=== PATIENT | female | born 1965 | race Asian ===

== ENCOUNTER 2018-02-15 14:03 | Emergency (ER) | payer BC, OTHER ==
--- NOTE | 2018-02-15 14:23 | PDOC ---
History of Present Illness - General History Source: Patient Exam Limitations: No Limitations - History of Present Illness Initial Comments: 02/15/18 15:04 The patient is a 53 year old female with a significant PMH of hypertension and hypercholesterolemia who presents to the emergency department with acute upper right quadrant pain abdominal pain earlier today. The patient reports that she was at home in bed when her upper right quadrant abdominal pain woke her up from her sleep at 3AM.She reports that her upper right quadrant pain is mostly on the right and radiates milimally towards the center. The patient reports that her upper quadrant pain is persistent and an 8/10 in severity. She reports that she took pepcid at 4am followed by pepto bismol at 6:30 am for concerns of a food related virus. She states that she experience no apparent relief. The patient reports associated episodes of diarrhea with her upper quadrant pain as well as 2 episodes of vomiting. The patient reports a similar episode like this 2 years ago by which she saw a doctor and her ultrasound results were normal. The patient reports that she has not consumed any food since yesterday. She denies any fever, chills, or constipation. She denies any chest pain, shortness of breath, headache or dizziness. The patient denies any urinary symptoms. The patient denies any other complaints. Allergies: Aspirin, Ibuprofen Past surgical history: Left ACL reconstruction (10 yrs ago) Social history: None reported PCP: Dr. Hope Garcia <Annie Jackson - Last Filed: 02/15/18 15:44> <Charanjit Mera - Last Filed: 02/15/18 17:20> - General Chief Complaint: Pain Stated Complaint: RUQ ABD PAIN Time Seen by Provider: 02/15/18 14:21 Past History <Annie Jackson - Last Filed: 02/15/18 15:44> <Charanjit Mera - Last Filed: 02/15/18 17:20> - Past Medical History Allergies/Adverse Reactions: Allergies Allergy/AdvReac Type Severity Reaction Status Date / Time aspirin Allergy Swelling Verified 02/15/18 14:05 ibuprofen Allergy Swelling Verified 02/15/18 14:05 Home Medications: Ambulatory Orders Amlodipine Besylate [Norvasc -] 10 mg PO DAILY 02/15/18 Atorvastatin Ca [Lipitor] 20 mg PO HS 02/15/18 Bismuth Subsalicylate [Pepto-Bismol -] 262 mg PO ONCE PRN 02/15/18 Metoprolol Succinate [Toprol Xl] 100 mg PO DAILY 02/15/18 Pantoprazole Sodium [Protonix] 40 mg PO ONCE #7 tablet. 02/15/18 Valsartan [Diovan] 160 mg PO DAILY 02/15/18 Review of Systems - Review of Systems Able to Perform ROS?: Yes Comments:: 02/15/18 15:05 CONSTITUTIONAL: Absent: fever, chills, diaphoresis, generalized weakness, malaise, loss of appetite HEENT: Absent: rhinorrhea, nasal congestion, throat pain, throat swelling, difficulty swallowing, mouth swelling, ear pain, eye pain, visual Changes CARDIOVASCULAR: Absent: chest pain, syncope, palpitations, irregular heart rate, lightheadedness , peripheral edema RESPIRATORY: Absent: cough, shortness of breath, dyspnea with exertion, orthopnea, wheezing, stridor, hemoptysis GASTROINTESTINAL: (+) upper right quadrant pain, vomiting, diarrhea, Absent: abdominal distension, constipation, melena, hematochezia GENITOURINARY: Absent: dysuria, frequency, urgency, hesitancy, hematuria, flank pain, genital pain MUSCULOSKELETAL: Absent: myalgia, arthralgia, joint swelling SKIN: Absent: rash, itching, pallor HEMATOLOGIC/IMMUNOLOGIC: Absent: easy bleeding, easy bruising, lymphadenopathy, frequent infections ENDOCRINE: Absent: unexplained weight gain, unexplained weight loss, heat intolerance, cold intolerance NEUROLOGIC: Absent: headache, focal weakness or paresthesias, dizziness, unsteady gait, seizure, mental status changes, bladder or bowel incontinence PSYCHIATRIC: Absent: anxiety, depression, suicidal or homicidal ideation, hallucinations. <Annie Jackson - Last Filed: 02/15/18 15:44> *Physical Exam - Vital Signs Last Vital Signs Temp Pulse Resp BP Pulse Ox 98 F 91 H 20 141/76 98 02/15/18 14:04 02/15/18 14:04 02/15/18 14:04 02/15/18 14:04 02/15/18 14:04 - Physical Exam Comments: 02/15/18 15:44 GENERAL: Well developed, well nourished. Awake and alert. No acute distress. HEENT: Normocephalic, atraumatic. PERRLA, EOMI. No conjunctival pallor. Sclera are non- icteric. Moist mucous membranes. Oropharynx is clear. NECK: Supple. Full ROM. No JVD. Carotid pulses 2+ and symmetric, without bruits. No thyromegaly. No lymphadenopathy. CARDIOVASCULAR: Regular rate and rhythm. No murmurs, rubs, or gallops. Distal pulses are 2+ and symmetric. PULMONARY: No evidence of respiratory distress. Lungs clear to auscultation bilaterally. No wheezing, rales or rhonchi. ABDOMINAL:(+)mild tenderness to right upper quadrant, Neil's sign equivocal. Soft. Non-tender. Non-distended. No rebound or guarding. No organomegaly. Normoactive bowel sounds. MUSCULOSKELETAL Normal range of motion at all joints. No bony deformities or tenderness. No CVA tenderness. EXTREMITIES: No cyanosis. No clubbing. No edema. No calf tenderness. SKIN: Warm and dry. Normal capillary refill. No rashes. No jaundice. NEUROLOGICAL: Alert, awake, appropriate. Cranial nerves 2-12 intact. No deficits to light touch and temperature in face, upper extremities and lower extremities. No motor deficits in the in face, upper extremities and lower extremities. Normoreflexic in the upper and lower extremities. Normal speech. Toes are down- going bilaterally. Gait is normal without ataxia. PSYCHIATRIC: Cooperative. Good eye contact. Appropriate mood and affect. <Annie Jackson - Last Filed: 02/15/18 15:44> ED Treatment Course - LABORATORY CBC & Chemistry Diagram: 02/15/18 14:43 02/15/18 14:43 <Charanjit Mera - Last Filed: 02/15/18 17:20> Medical Decision Making - Medical Decision Making 02/15/18 17:18 White blood count moderately elevated 15.9. Otherwise no significant abnormalities Ultrasound normal gallbladder Abdominal exam remains benign, no significant tenderness guarding or rebound. Most likely this is gastroenteritis, especially considering the vomiting and diarrhea. May also be related to 10 day course of amoxicillin, side effect. Symptomatic treatment and follow-up ER or primary physician as needed. <Charanjit Mera - Last Filed: 02/15/18 17:20> *DC/Admit/Observation/Transfer - Attestations Scribe Attestion: 04/25/18 15:05 Documentation prepared by Annie Jackson, acting as medical administrative specialist for Charanjit Low MD. <Annie Jackson - Last Filed: 02/15/18 15:44> - Discharge Dispostion Admit: No <Charanjit Mera - Last Filed: 02/15/18 17:20> Diagnosis at time of Disposition: Viral gastroenteritis - Discharge Dispostion Disposition: HOME Condition at time of disposition: Improved - Prescriptions Prescriptions: Pantoprazole Sodium [Protonix] 40 mg PO ONCE #7 tablet.dr - Patient Instructions Printed Discharge Instructions: DI for Viral Gastroenteritis -- Adult Additional Instructions: Clear liquids, light diet until nausea, vomiting, diarrhea, and pain is completely resolved for 24 hours. Then progress to normal diet Return to ER if there is fever or if the pain worsens, or there is persistent vomiting or diarrhea Otherwise follow-up with your doctor Dr. Garcia. - Post Discharge Activity Forms/Work/School Notes: Back to Work
[2018-02-15 14:28] VITALS: TEMP 98; BMI 22.6
[2018-02-15] MEDS ORDERED: PANTOPRAZOLE SODIUM 40 MG in SODIUM CHLORIDE 100 ML IVPB ONE (14:55)
[2018-02-15] MEDS ORDERED: ACETAMINOPHEN 1000 MG/100 ML VIAL (NON FORMULARY) IVPB ONE (14:59)
[2018-02-15] MEDS ORDERED: ACETAMINOPHEN INJECTION 100 ML IVPB ONE (15:19)
[2018-02-15] MEDS ORDERED: PANTOPRAZOLE SODIUM 40 MG VIAL ONE (15:19)
[2018-02-15 16:17] LABS: PH,URINE 5.5 (4.5-8); URINE APPEARANCE Clear; URINE BILIRUBIN Negative (NEGATIVE); URINE GLUCOSE (UA) Negative (NEGATIVE); URINE KETONE Negative (NEGATIVE); URINE LEUK ESTERASE Negative (NEGATIVE); URINE NITRITE Negative (NEGATIVE); URINE PROTEIN Negative (NEGATIVE); URINE UROBILINOGEN 0.2 (0.2-1.0)
[2018-02-15 16:22] LABS: BASO % 0.3 % (0-2.0); EOS % 0.3 % (0-4.5); HEMATOCRIT 45.5 % (32.4-45.2); HEMOGLOBIN 15.2 GM/dl (10.7-15.3); LYMPH % 9.8 % (8-40); MCH 29.3 pg (25.7-33.7); MCHC 33.3 g/dl (32.0-36.0); MEAN CELL VOLUME 87.9 fl (80-96); MEAN PLT VOLUME 8.1 fl (7.5-11.1); MONO % 2.6 % (3.8-10.2); PLATELET COUNT 475 K/MM3 (134-434); RBC 5.18 M/mm3 (3.60-5.2); RDW 12.6 % (11.6-15.6); WHITE BLOOD COUNT 15.9 K/mm3 (4.0-10.8)
[2018-02-15 16:27] LABS: URINE BLOOD Trace-intact (NEGATIVE); URINE COLOR YELLOW
[2018-02-15 16:36] LABS: ALBUMIN 4.2 g/dl (3.5-5.0); ALK PHOS 71 U/L (32-92); ANION GAP 11 (8-16); BLOOD UREA NITROGEN 10 mg/dl (7-18); CALCIUM 9.8 mg/dl (8.4-10.2); CHLORIDE 97 mmol/L (98-107); CO2 25 mmol/L (22-28); GLUCOSE,RANDOM 115 mg/dl (74-106); POTASSIUM 3.5 mmol/L (3.5-5.1); SGOT/AST 25 U/L (10-42); SGPT/ALT 17 U/L (10-40); SODIUM 133 mmol/L (136-145); TOT PROT 8.3 g/dl (6.4-8.3)
[2018-02-15] MEDS ORDERED: SODIUM CHLORIDE 1,000 ML IV STA (16:46)
[2018-02-15 16:59] LABS: CREATININE < 0.8 mg/dl (0.6-1.3)
[2018-02-15 17:20] VITALS: BP 123/83; PULSE 83
[2018-02-15 19:56] LABS: URINE BACTERIA FEW /hpf (NEGATIVE); URINE WBC 0-2 (0-5)
== END 2018-02-15 17:29 | disposition home or self-care (01) ==
LOC: FER 14:03
PROC: 3E033GC Introduction of Other Therapeutic Substance into Peripheral Vein, Percutaneous Approach (ICD-10-PCS; principal; 2018-02-15)
PROC: 3E033NZ Introduction of Analgesics, Hypnotics, Sedatives into Peripheral Vein, Percutaneous Approach (ICD-10-PCS; 2018-02-15)
DX: K52.9 Noninfective gastroenteritis and colitis, unspecified (principal); B97.89 Other viral agents as the cause of diseases classified elsewhere
CPT/HCPCS: 36415; 76705-TC; 80053; 81003; 81015; 85025; 99283-25; J0131